=== PATIENT | male | born 1955 | race African-American/Black ===

== ENCOUNTER 2020-10-29 08:47 | Emergency (ER) | payer OTHER ==
[2020-10-29 09:25] LABS: BASOPHIL 0.2 % (0-2); EOSINOPHIL 0.5 % (0-7); HCT 43.8 % (42.0-52.0); HGB 14.2 g/dl (13.2-18.0); LYMPHOCYTE 15.2 % (15-48); MCH 29.3 pg (25.0-31.0); MCHC 32.4 g/dL (32.0-36.0); MCV 90.5 fL (78.0-100.0); MONOCYTE 11.1 % (0-12); MPV 10.6 fL (6.0-9.5); NEUTROPHIL 72.5 % (41-80); NRBC 0; PLT 168 K/uL (150-400); RBC 4.84 M/uL (4.70-6.00)
[2020-10-29 09:39] LABS: ALBUMIN 3.2 g/dL (3.4-5.0); ALKALINE PHOSHATASE 63 U/L (46-116); ALT 35 U/L (16-63); AST 25 U/L (15-37); BILIRUBIN - TOTAL 0.4 mg/dL (0.2-1.0); BUN 13 mg/dL (7-18); BUN/CREAT RATIO (CALC) 9.7 RATIO; CHLORIDE 102 mmol/L (98-107); CO2 (BICARBONATE) 26 mmol/L (21-32); CREATININE 1.34 mg/dL (0.67-1.17); GLOBULIN (CALCULATION) 3.8 g/dL; GLUCOSE 105 mg/dL (74-106)
[2020-10-29 09:45] LABS: LACTIC ACID 3.3 mmol/L (0.4-1.9)
[2020-10-29 10:13] LABS: INR 1.08 (0.9-1.2); PROTHROMBIN TIME 13.4 SECONDS (11.8-13.4); PTT 31.2 SECONDS (24.4-34.7)
[2020-10-29 10:14] LABS: D-DIMER 1.88 ug/mLFEU (0.00-0.41)
[2020-10-29 10:24] LABS: PRO-BNP 105 pg/mL (<125)
[2020-10-29] MEDS ORDERED: ELIQUIS5 MG PO (12:37)
== END 2020-10-29 14:55 | disposition home or self-care (01) ==
LOC: FER 08:47
PROVIDERS: Emergency Medicine
DX: U07.1 COVID-19 (principal); I48.91 Unspecified atrial fibrillation; I10 Essential (primary) hypertension; K21.9 Gastro-esophageal reflux disease without esophagitis
CPT/HCPCS: 36415; 71045; 71275; 80053; 83605; 83880; 84145; 84484; 85025; 85379; 85610; 85730; 87040; 93005; G0480; J7030; M0243; Q0244; Q9967